=== PATIENT | female | born 1980 | race Two or more races ===

== ENCOUNTER 2016-09-03 23:20 | Emergency (ER) | payer BC ==
[~2016-09-03] VITALS: Ht 149.9 cm; Wt 68.0 kg
[2016-09-03] MEDS ORDERED: ACETAMINOPHEN 325 MG TABLET PO ONE (23:45)
--- NOTE | 2016-09-04 | NUR ---
Patient discharged to home in stable conditon. Written and verbal after care instructions given. Patient verbalizes understanding of instructions. Ambulated from ER with stable gait. All belongings with patient. right hand thumb spica splint applied, DEVI WNL.
[2016-09-04 00:01] VITALS: BP 131/78
[2016-09-04] MEDS ORDERED: ACETAMINOPHEN ES 500 MG TABLET ONE (00:05)
== END 2016-09-04 00:02 | disposition home or self-care (01) ==
LOC: ER 23:22
DX: S63.91XA Sprain of unspecified part of right wrist and hand, initial encounter (principal); X58.XXXA Exposure to other specified factors, initial encounter; Y93.89 Activity, other specified; Y99.8 Other external cause status; Y92.89 Other specified places as the place of occurrence of the external cause
CPT/HCPCS: 29125; 99283; A4663